=== PATIENT | female | born 1990 | race Caucasian/White ===

== ENCOUNTER 2017-05-12 22:20 | Emergency (ER) | payer OTHER ==
[2017-05-12 22:25] VITALS: BP 111/72
--- NOTE | 2017-05-12 22:45 | ED Physician Documentation ---
PD HPI BACK INJURY - Stated complaint Stated Complaint: GLF/BACK PX 8WK OB - History obtained from History obtained from: Patient, Family - History of Present Illness Location: Other (G1 at 8 weeks gestation who tripped over her dog's leash tonight and landed on her back. She really has no significant pain but is more anxious about the status of her .) Review of Systems Constitutional: denies: Fever, Chills GI: reports: Nausea, Vomiting. denies: Abdominal Pain, Diarrhea : denies: Dysuria, Frequency Musculoskeletal: denies: Neck pain, Back pain PD PAST MEDICAL HISTORY - Past Medical History Past Medical History: No - Past Surgical History Past Surgical History: No - Present Medications Home Medications: Ambulatory Orders Medication Instructions Recorded Confirmed Pnv95/Ferrous Fumarate/FA 1 tab PO DAILY 05/12/17 05/12/17 [ Vitamin Tablet] - Allergies Allergies/Adverse Reactions: Allergies Allergy/AdvReac Type Severity Reaction Status Date / Time diphenhydramine HCl * Allergy Anxiety Verified 05/12/17 22:26 [From Benadryl] - Social History Does the pt smoke?: No Smoking Status: Never smoker Does the pt drink ETOH?: No Does the pt have substance abuse?: No - Immunizations Immunizations are current?: Yes PD ED PE NORMAL - Vitals Vital signs reviewed: Yes - General General: Alert and oriented X 3, No acute distress - Neck Neck: Supple, no meningeal sign, No bony TTP - Abdomen Abdomen: Soft, Non tender - Female Female : Other (Bedside ultrasound demonstrates single live intrauterine with heart rate of 170) - Back Back: No spinal TTP - Extremities Extremities: No tenderness to palpate - Neuro Neuro: Alert and oriented X 3, Normal speech Results - Vitals Vitals: Vital Signs - 24 hr 05/12/17 22:23 Temperature 35.9 C L Heart Rate 69 Respiratory 16 Rate Blood Pressure 111/72 O2 Saturation 100 Oxygen O2 Source Room air Departure - Departure Disposition: 01 Home, Self Care Clinical Impression: Fall from ground level, First trimester Condition: Good Record reviewed to determine appropriate education?: Yes Comments: Return for new or worsening symptoms, otherwise follow-up with your OB as scheduled.
== END 2017-05-12 22:52 | disposition home or self-care (01) ==
LOC: ED 22:20
DX: O26.891 Other specified pregnancy related conditions, first trimester (principal); M54.9 Dorsalgia, unspecified; W01.0XXA Fall on same level from slipping, tripping and stumbling without subsequent striking against object, initial encounter; Y93.K1 Activity, walking an animal; Z3A.08 8 weeks gestation of pregnancy
CPT/HCPCS: 99282; 99283

== ENCOUNTER 2017-10-04 10:09 | Outpatient (CLI) | payer OTHER | END 2017-10-04 10:10 | disposition home or self-care (01) | LOC: LAB 10:09 | PROVIDERS: ATTEND Nurse Practitioner Obstetrics & Gynecology | DX: Z36.9 Encounter for antenatal screening, unspecified (principal) | CPT/HCPCS: 36415; 82950; 85018; 86850 ==

== ENCOUNTER 2017-10-11 14:25 | Outpatient (CLI) | payer OTHER ==
--- NOTE | 2017-10-13 15:54 | Ultrasound Report ---
DATE OF SERVICE: 10/11/2017 OB FOLLOWUP: 10/11/2017 CLINICAL INDICATION: Followup bilateral choroid plexus cysts. Report of outside OB office visit is included, with a mention of bilateral choroid plexus cysts on an outside anatomy scan dated 08/04/2017. TECHNIQUE: Real-time scanning was performed with nutrition representative static images obtained. LAST MENSTRUAL PERIOD 03/13/2017 Clinical Age 30 weeks 2 days US Age 31 weeks 2 days EFW Hadlock 1597 g EFW% Hadlock --- Heart Rate 146 bpm EDC --- US EDC 12/11/2017 BPD [place] 33 weeks 1 day; Mean mm 82.3 HC [place] 32 weeks 0 days; Mean mm 291.0 AC [place] 30 weeks 4 days; Mean mm 264.3 FL [place] 29 weeks 4 days; Mean mm 56.1 Presentation cephalic Placental Location anterior Cervical Length --- Amniotic Fluid 17.9 cm FINDINGS: There is a single viable intrauterine gestation, in cephalic presentation. heart rate is 146 BPM. The placenta is anterior without evidence of previa. Amniotic fluid volume is normal, with an ISIDRO of 17.9. By size, the fetus measures 31 weeks 2 days (30 weeks 2 days per due date provided by the patient). No choroid plexus cysts are identified on today's examination. No free fluid or adnexal lesion is seen. IMPRESSION: Resolution of previously identified choroid plexus cysts. Expected growth. TD: 10/12/2017 12:53 MTDD
== END 2017-10-11 14:26 | disposition home or self-care (01) ==
LOC: DI 14:25
PROVIDERS: ATTEND Nurse Practitioner Obstetrics & Gynecology
DX: Z36.2 Encounter for other antenatal screening follow-up (principal)
CPT/HCPCS: 76816

== ENCOUNTER 2017-10-27 11:18 | Outpatient (CLI) | payer OTHER | END 2017-10-27 11:19 | disposition home or self-care (01) | LOC: LAB.R 11:18 | PROVIDERS: ATTEND Nurse Practitioner Obstetrics & Gynecology | DX: R82.90 Unspecified abnormal findings in urine (principal) | CPT/HCPCS: 87086 ==

== ENCOUNTER 2017-11-30 10:09 | Outpatient (CLI) | payer OTHER | END 2017-11-30 10:10 | disposition home or self-care (01) | LOC: LAB.R 10:09 | PROVIDERS: ATTEND Nurse Practitioner Obstetrics & Gynecology | DX: Z36.85 Encounter for antenatal screening for Streptococcus B (principal) | CPT/HCPCS: 87081 ==

== ENCOUNTER 2017-12-26 15:24 | Inpatient (IN) | payer OTHER ==
[2017-12-26] MEDS ORDERED: SODIUM CHLORIDE FLUSH 0.9% 10 ML SYRINGE IVP PRN (15:56)
[2017-12-26] MEDS ORDERED: LACTATED RINGERS 1,000 ML IV SCH (16:00)
--- NOTE | 2017-12-26 16:10 | HISTORY & PHYSICAL EXAMINATION ---
Admit History - Instructions Mcgrath/Slash: -Left hand click circles element as positive or present. -Right hand click slashes element as negative or not present. - Visit Reason Visit Reason: Contractions - : 1 Parity: 0 Premature: 0 Ectopic: 0 : 0 Care: positive: [facility] Risk/History: positive: None Complications This : positive: None Smoking Status: Never smoker - Mother's Labs Mother's Blood Type: positive: O Mother's RH: positive: Negative GBS: positive: Group B Step Negative Rubella Status: positive: Immune - Other Maternal History Other Maternal History: HPI: This 27yo @ 41.1wks gestation by L=10.4wk U/S presents for contractions. Reports contractions began at 1100 and at 1400 they really started to greens picker and were one on top of another. Upon evaluation she was noted to be 4-5cm/100/-2. Membranes intact. She was admitted to L&D for management. She reports +FM and denies leakage of fluid. Dating criteria: 1.) LMP 03/10/2017 2.) First ultrasound @ 10.4wks agrees 3.) First exam 09/28/17 @ 28wks - agrees 4.) Serial exams @ 30-40wks - agrees OB History: G1: current [employer] History: Menarche age 10, regular cycle Menses 27-28 days STD's non [employer] surgeries-none Abnormal paps and treatment: no hx abnormal. last pap 11/2016 WNL PMH: none Surgical hx none: Family Hx: Asthma-sister; depression - mother; HTN- mother Social Hx: never smoker - works at a [employer] Meds: PNV Allergies -benadryl Physical Exam: Heart RRR w/o M/G/R Lungs CTAB Abdomen gravid, soft, nontender Cervix: 4-5/100/-2, vertex. Membranes intact Early labs: Blood type: O neg, antibody neg Hgb 13.8, Hct 39.6, PLT 200 Rubella immune HIV non-reactive GC/CT neg Hep B neg; Hep A neg; Hep C neg RPR non-reactive, treponema non-reactive 28 week labs: Hgb 12.1 Antibody neg 1 hour GTT 101 Tdap 09/28/17 Influenza 07/16/17 Rhogam: 10/04/2017 Ultrasounds: FAS WNL except bilateral choroid plexus cyst (4mm), placenta anterior, no previa , ISIDRO WNL, 3VC 06/18/2018 f/u: Resolution of previous choroid plexus cyst. Expected growth. Assessment: 27yo @ 41.1 wks gestation by L=10.4wk U/S Active labor Desires natural labor Plan: Intermittent monitoring/ intermittent auscultation Activity and nutrition as indicated Encouraged position changes Anticipate spontaneous vaginal delivery Meds/Allgy - Home Medications Home Medications: Ambulatory Orders Medication Instructions Recorded Confirmed Pnv95/Ferrous Fumarate/FA 1 tab PO DAILY 05/12/17 05/12/17 [ Vitamin Tablet] - Allergies Allergies/Adverse Reactions: Allergies Allergy/AdvReac Type Severity Reaction Status Date / Time diphenhydramine HCl * Allergy Anxiety Verified 05/12/17 22:26 [From Benrameshl]
[2017-12-26] MEDS ORDERED: SODIUM CHLORIDE FLUSH 0.9% 10 ML SYRINGE IVP SCH (17:00)
[2017-12-26] MEDS ORDERED: OXYTOCIN 10 UNIT/ML VIAL ONE ×2 (17:43→17:47)
[2017-12-26] MEDS ORDERED: LIDOCAINE 1% 50 ML MDV ONE (17:46)
[2017-12-26] MEDS ORDERED: miSOPROStol 200 MCG TABLET ONE (17:47)
[2017-12-26] MEDS ORDERED: MINERAL OIL LIGHT 10 ML MC ONE (17:47)
[2017-12-26] MEDS ORDERED: OXYTOCIN/SODIUM CHLORIDE 500 ML IV ONE (17:47)
[2017-12-26 18:38] LABS: BASOPHILS # (AUTO) 0.1 10^3/uL (0.0-0.1); BASOPHILS % (AUTO) 0.3 %; HGB - HEMOGLOBIN 12.5 g/dL (12.0-16.0); LYMPHOCYTES # (AUTO) 0.9 10^3/uL (1.5-3.5); LYMPHOCYTES % (AUTO) 5.3 %; MEAN CORPUSCULAR HGB CONC 33.2 g/dL (32.0-36.0); MEAN CORPUSCULAR VOLUME 90.4 fL (81.0-99.0); MEAN PLATELET VOLUME 9.8 fL (7.9-10.8); MONOCYTES # (AUTO) 0.7 10^3/uL (0.0-1.0); MONOCYTES % (AUTO) 3.8 %; NEUTROPHILS # (AUTO) 15.7 10^3/uL (1.5-6.6); NEUTROPHILS % (AUTO) 90.6 %; PLT - PLATELET COUNT 184 10^3/uL (130-450); RED BLOOD COUNT 4.18 10^6/uL (4.20-5.40); RED CELL DISTRIBUTION WIDTH 13.8 % (12.0-15.0); WHITE BLOOD COUNT 17.3 x10^3/uL (4.8-10.8)
--- NOTE | 2017-12-26 22:03 | PROVIDER PROGRESS NOTE ---
Labor Progress Note - Uterine Monitoring Uterine Monitoring Mode: positive: External toco Contraction Frequency (min/apart): 2-3 Contraction Intensity: positive: Strong Uterine Resting Tone: positive: Soft - Monitoring Monitor Mode: positive: External ultrasound Heart Rate Baseline: 145 Heart Rate Variability: positive: Moderate (6-25 bmp) Accelerations: positive: Present, 15x15 Decelerations: positive: None Strip Review: positive: Category I - Vaginal Exam Dilation (in cm): 6-7 Effacement (%): 100 Station: -1 Cervical Position: Midposition - Labor Progress Note Labor Progress Note/Additional Text: S: Coping well with contractions. Currently using stool. and occupational therapist aide supportive at bedside. O: FHR baseline 145, moderate variability, + accels, no decels. SVE last check 6 -7/100/-3, midposition, soft. A: 27yo @ 41.1wks gestation by L=10.5wk U/S Active labor BOW intact Category I tracing P: Continue expectant management. May consider AROM for augmentation with next SVE. Anticipate spontaneous vaginal delivery.
[2017-12-27] MEDS ORDERED: HYDROCORTISONE/PRAMOXINE 10 GM PR PRN (01:47)
[2017-12-27] MEDS ORDERED: OXYTOCIN/SODIUM CHLORIDE 250 ML IV ONE (01:47)
[2017-12-27] MEDS ORDERED: WITCH HAZEL/GLYCERIN 1 EACH MED..PAD TOP PRN (01:47)
--- NOTE | 2017-12-27 01:47 | DELIVERY NOTE ---
Delivery Note - Labor Labor: positive: Spontaneous - Delivery Method Delivery Method: positive: Spontaneous vaginal delivery - Presentation Presentation: positive: Vertex, Compound, ROSY - left occiput anterior - Nuchal Cord Nuchal Cord: positive: Present, Reduced - Amniotic Fluid Description Amniotic Fluid Description: positive: Clear - Episiotomy Type Episiotomy Type: positive: None - Laceration Laceration: positive: Perineal - Suture Suture Type: positive: Vicryl Suture Size: positive: 3-0 - Delivery Outcome Delivery Outcome: positive: Livebirth - [place] : positive: Placed in direct skin contact with mother, Stimulated, [place] used sex: positive: Female - Cord Cord: positive: 3 vessels - Placenta Placenta: positive: Intact, Spontaneous - Estimated Blood Loss Estimated Blood Loss (in cc): 400 - Post Delivery Events Post Delivery Events: positive: No post delivery events - Delivery Comments (Free Text/Narrative) Delivery Comments (Free Text/Narrative): labor: This 27yo @ 41.2 wks gestation by L=10.5week U/S presented at approximately 1500 in active labor. Cervix was 4-5/100/-2 and vertex. FHR pattern demonstrated 145 baseline in a Category I pattern. Normal labor course. Patient arrived with membranes intact. She was allowed to labor in the [facility] for a period of time and it is assumed that SROM occurred at that time. : Normal SVB of an 8lb0oz viable female infant in ROSY position. Loose nuchal cord x 1 easily reduced. Right compound hand noted at right side of chin. 's were 8/9 at 1 and 5 min respectively at 0100 on 12/27/2017. The was placed on maternal abdomen, stimulated, dried, and placed skin to skin. The umbilical cord was allowed to stop pulsating at which time it was doubly clamped and cut by FOB. Cord blood was obtained. Placenta delivered spontaneously and intact at 0110. 3VC. Pitocin was administered via IV for hemostasis. EBL 400mL. Uterine fundus firm and there is no excessive bleeding. The perineum, vagina, and cervix were inspected and found to be intact with mild left perineal laceration. 1% lidocaine was used to infiltrate the affected area which was repaired with 3-0 vicryl in standard fashion under sterile conditions. Vaginal examination following repair was done. Tissues well approximated. initiated. Family bonding well. Both mother and baby were left in stable condition.
[2017-12-27] MEDS ORDERED: OXYTOCIN/SODIUM CHLORIDE 500 ML IV ONE (01:48)
[2017-12-27] MEDS ORDERED: ACETAMINOPHEN 500 MG TABLET PO SCH (02:00)
[2017-12-27] MEDS ORDERED: LACTATED RINGERS 1,000 ML IV SCH (02:00)
[2017-12-27] MEDS: IBUPROFEN 800 MG TABLET PO SCH ×4 (02:22→20:56)
[2017-12-27] MEDS: DOCUSATE SODIUM 100 MG CAPSULE PO SCH ×2 (08:42→20:57)
--- NOTE | 2017-12-28 08:36 | Discharge Plan ---
Discharge Plan Disposition: 01 Home, Self Care Condition: Good Diet: Regular Activity Restrictions: No Restrictions Shower Restrictions: No Driving Restrictions: No Weight Bearing: Full Weight Additional Instructions or Follow Up instructions: S: Bonding well with baby. without difficulty. Slept well throughout the night. Pain well controlled with ibuprofen. Bleeding decreased. O: BP104/64, T 36.6, Admitted Hgb 12.5. Heart RRR w/o M/R/G, lungs CTAB. Abdomen soft and non-tender with fundus firm at U-3. Perineum intact. Light lochia rubra. Bilateral LE's no edema. A: 27yo -->P1 PPD#1 s/p TSVD of viable female Perineum intact with repaired left labial laceration RH negative - received Rhogam P: Discharge home today. Reviewed self care and warning signs. Rx sent to [facility] in [place] for Colace 100mg PO PRN constipation #60 with 1 refill. Ibuprofen 600mg PO q6hrs PRN pain #60 with 1 refill. Planning Nexplanon for contraception - desires future children in 2-3 years. Plans to f/u with myself at [facility] in 3 weeks and 8 weeks or sooner PRN. Will hold discharge until tomorrow if baby is not discharged. No Smoking: If you smoke, Please STOP! Call for help. Follow-up with: Ana Ortega CNM, PATRICIA [Provider Admit Priv/Credential] -
[2017-12-28] MEDS: IBUPROFEN 800 MG TABLET PO SCH (08:58)
[2017-12-28] MEDS: DOCUSATE SODIUM 100 MG CAPSULE PO SCH (09:02)
[2017-12-28] MEDS ORDERED: RHO(D) IMMUNE GLOBULIN 300 MCG SYRINGE IM ONE (12:21)
[2017-12-28 16:29] VITALS: BP 99/60
--- NOTE | 2017-12-28 16:50 | Labor Flowsheet ---
Labor Flowsheet Datetime Report Generated by CPN: 12/28/2017 16:49 Datetime: 12/28/2017 13:29 VITAL SIGNS NBP Sys/Jennifer/Mean (mmHg): 99 : 60 : 70 Pulse: 88 Datetime: 12/27/2017 16:10 SpO2 (%): 100 Datetime: 12/27/2017 03:30 Membranes Ruptured Date/Time: 12/26/2017 20:30 Membranes Rupture Method: Spontaneous Amniotic Fluid Color: Clear Amniotic Fluid Amount: Small Amniotic Fluid Odor: None Datetime: 12/27/2017 03:15 Stage of : Recovery PAIN Pain Scale: 0 Pain Presence: None/Denies Pain Goal: 6 Pain Relief Measures: Comfort Measures Datetime: 12/27/2017 01:30 Temperature (C): 37.0 Temperature Route: Oral Datetime: 12/27/2017 01:12 MEDICATIONS Pitocin (milliunits): Increased to @ 999 Datetime: 12/27/2017 01:10 Comments: placenta delicvered intact, Pitocin started at 50ml/hr Datetime: 12/27/2017 01:08 LaborFlag: Labor Datetime: 12/27/2017 00:52 Respirations: 18 Datetime: 12/27/2017 00:45 UTERINE ACTIVITY Monitor Mode: External Frequency (min): 2-4 Quality: Strong Duration (sec): 70-100 Pattern: Normal: <= 5 Contractions in 10 Minutes Resting Tone (Palpate): Relaxed ASSESSMENT A Monitor Mode: External US FHR Baseline Rate : 150 Variability: Moderate 6-25 bpm Accelerations: 10X10 Decelerations: Variable Actions for Decelerations: Oxygen Applied; Provider Notified Datetime: 12/27/2017 00:39 PATIENT CARE Oxygen Amount (LPM): 10 Datetime: 12/27/2017 00:15 Category: Category II Datetime: 12/27/2017 00:10 VAGINAL EXAM Dilatation (cm): 10.0 Effacement (%): 100 Station: 1 Exam by: A. Oneil, CNM Datetime: 12/27/2017 00:08 Contraction Comments: pushing with contractions Datetime: 12/26/2017 23:00 Monitor Interventions for FHR: Ultrasound Adjusted Pain Type: Contraction Pain Location: Abdomen; Back Pain Coping: Breathing Through Contractions; Declines Medication or Epidural; Crying; Other Oxygen Method: Room Air Datetime: 12/26/2017 22:30 Hygiene: Annette Care; Underpad Changed Datetime: 12/26/2017 22:21 Vaginal Exam Comments: A Oneil, CNM unable to rupture membranes at this time Datetime: 12/26/2017 22:13 Communication Comments: pt back to bed, monitors on; A Oneil, CNM at bedside Datetime: 12/26/2017 21:32 Monitor Interventions for UA: [place] Adjusted Datetime: 12/26/2017 19:55 COMMUNICATION Communication: RN at Bedside; RN Reviewed Strip Datetime: 12/26/2017 19:45 Temperature (F): 98.3 Temperature (C): 36.8 Pain Assessment Comments: Superintendent Meters and at tubside Membrane Status: Intact MATERNAL ASSESSMENT Level of Consciousness: Fully Conscious DTR's/Clonus: DTRs 2+ Headache: Denies Breath Sounds, Left: Clear and Equal Breath Sounds, Right: Clear and Equal Nausea/Vomiting: Denies RUQ Epigastric Pain: Denies TEACHING Instructional Method: Verbal; Family/Support Person Instructed; Verbalized Understanding Plan of Care: Plan of Care Discussed; Vaginal Delivery Unit Routine: [place] to Room; Call [place]; Bed; Visiting Policy; Waiting Areas; Security; Phon e/Cell Phone Use; Unit Personnel; Handwashing; Flu/Illness Precautions Labor/Induction: Labor Stages Pain Management: Comfort Measures Medications: Pitocin PTL/PROM: Hydration; Signs/Symptoms of Infection Related: Hydration; Activity and Rest Datetime: 12/26/2017 19:10 R Baseline Changes: No Baseline Change Datetime: 12/26/2017 16:15 Vaginal Bleeding: Normal Show Cervix, Consistency: Soft Cervix, Position: Anterior Provider Reviewed Strip: Yes ANESTHESIA Anesthesia Plans: None Notification Reason: Status Update
--- NOTE | 2018-01-05 18:03 | DISCHARGE SUMMARY ---
Physician: PATRICIA Rivas DATE OF ADMISSION: 12/26/2017 DATE OF DISCHARGE: 12/28/2017 DIAGNOSES ON ADMISSION 1. A 27-year-old G1, P0 at 41.1 weeks gestation. 2. Active labor. DIAGNOSES ON DISCHARGE 1. A 27-year-old G1, P1-0-0-1, status post spontaneous vaginal delivery on 12/27/2017. 2. Normal recovery status post RhoGAM on 12/28/2017 BRIEF HISTORY: She is a patient of [facility] who presented on 12/26/2017 with complaints of contractions. She was noted to be 4-5 cm dilated, 100% effaced and -2 station, vertex with intact membranes. She spontaneously delivered a viable female at 0100 on 12/27/2017. Apgars were 8 and 9 at 1 and 5 minutes respectively. EBL 400 mL. The perineum, vagina and cervix were inspected and found to be intact with mild left perineal laceration, which was repaired with a 3-0 Vicryl in standard fashion under sterile conditions. She has been doing well in her course. She was ambulating and tolerating a regular diet. She is urinating without difficulty. Her lochia was normal. Her pain is well controlled with oral medications. She received RhoGAM on 12/28/2017. She will be discharged home today on day #2 with prescriptions for ibuprofen and Colace. She intends to followup with myself at [facility] in 3 weeks for routine visit. She has been given precautions to call if she has any worsening fevers, chills, abdominal pain, increased bleeding or foul smelling vaginal lochia. TD: 01/05/2018 18:01
== END 2017-12-28 13:45 | disposition home or self-care (01) | DRG 775 ==
LOC: WFO 15:24 → FBP 15:47 → WFO 15:55 → FBP 15:56
PROVIDERS: ADMIT Nurse Practitioner Obstetrics & Gynecology; ATTEND Nurse Practitioner Obstetrics & Gynecology
PROC: 10E0XZZ Delivery of Products of Conception, External Approach (ICD-10-PCS; principal; 2017-12-26)
PROC: 0HQ9XZZ Repair Perineum Skin, External Approach (ICD-10-PCS; 2017-12-26)
DX: O48.0 Post-term pregnancy (principal); O70.0 First degree perineal laceration during delivery; O32.6XX0 Maternal care for compound presentation, not applicable or unspecified; O69.81X0 Labor and delivery complicated by cord around neck, without compression, not applicable or unspecified; Z3A.41 41 weeks gestation of pregnancy; Z37.0 Single live birth
CPT/HCPCS: 83033; 85025; 86900; 86901; 99212

== ENCOUNTER 2019-04-20 08:47 | Outpatient (CLI) | payer OTHER ==
--- NOTE | 2019-04-20 17:31 | Ultrasound Report ---
Reason: TEST POSITIVE Procedure Date: 04/20/2019 Accession Number: [id number] / [id number] Procedure: US - OB First Trimester CPT Code: FULL RESULT: EXAM: FIRST TRIMESTER OBSTETRIC ULTRASOUND (Less than 11 weeks) EXAM DATE: 04/20/2019 10:30 AM. CLINICAL HISTORY: TEST POSITIVE. LMP: 02/23/2019. COMPARISONS: None. TECHNIQUE: Transabdominal and transvaginal ultrasound examination with static image documentation. CLINICAL DATES: EGA 8 weeks 0 days with EVY 11/30/2019 based on LMP. ASSESSMENT: Gestational Sac: Single intrauterine. Embryo: CRL (crown-rump length) 13.6 mm = 7 weeks 4 days. Cardiac activity: 174 beats per minute. Yolk sac: 5 mm. Amniotic fluid: Not accurately assessed at this gestational age. Early placenta: Not visible at this gestational age. Other: No perigestational fluid collection demonstrated. MATERNAL STRUCTURES: Uterus: Anteverted. Unremarkable. Cervix: Closed. Bilateral ovaries appear unremarkable. Free Fluid: None. Other: None. IMPRESSION: 1. Single viable intrauterine at EGA 7 weeks 4 days with EVY based on crown-rump length, which is concordant with clinical dates. 2. Assigned dating is EVY 11/30/2019 based on LMP. MICHELLEA
== END 2019-04-20 08:48 | disposition home or self-care (01) ==
LOC: DI 08:47
PROVIDERS: ATTEND Nurse Practitioner Obstetrics & Gynecology
DX: Z32.01 Encounter for pregnancy test, result positive (principal)
CPT/HCPCS: 76801; 76817

== ENCOUNTER 2019-05-12 08:00 | Outpatient (CLI) | payer OTHER ==
[2019-05-12 14:30] LABS: MUDS CUTOFF CONCENTRATIONS CUTOFF CONC BELOW:
[2019-05-12 14:36] LABS: BILIRUBIN,URINE NEGATIVE (NEGATIVE); GLUCOSE, URINE (UA) NEGATIVE (NEGATIVE); KETONES,URINE (UA) NEGATIVE (NEGATIVE); LEUKOCYTE ESTERASE, URINE NEGATIVE (NEGATIVE); NITRITE,URINE NEGATIVE (NEGATIVE); OCCULT BLOOD,URINE NEGATIVE (NEGATIVE); PROTEIN,URINE NEGATIVE (NEGATIVE); UROBILINOGEN,URINE 0.2 (NORMAL) E.U./dL (NORMAL)
[2019-05-12 14:38] LABS: CLARITY,URINE CLEAR (CLEAR)
[2019-05-12 14:48] LABS: BACTERIA,URINE Rare /HPF (None Seen); RBC,URINE 0-5 /HPF (0-5); SQUAMOUS EPITHELIAL CELL,UR FEW Squamous (<= Few)
[2019-05-12 14:49] LABS: AMPHETAMINE SCREEN,URINE NEGATIVE (NEGATIVE); BENZODIAZEPINES SCREEN, URINE NEGATIVE (NEGATIVE); COCAINE SCREEN URINE NEGATIVE (NEGATIVE); METHADONE SCREEN, URINE NEGATIVE (NEGATIVE); METHAMPHETAMINES SCREEN, URINE NEGATIVE (NEGATIVE); OPIATE SCREEN, URINE NEGATIVE (NEGATIVE); OXYCODONE SCREEN, URINE NEGATIVE (NEGATIVE); PROPOXYPHENE SCREEN, URINE NEGATIVE (NEGATIVE); TRICYCLIC ANTIDEPRESSANT,URINE NEGATIVE (NEGATIVE)
[2019-05-12 19:04] LABS: TRICHOMONAS VAGINALIS DNA NEGATIVE (NEGATIVE)
== END 2019-05-12 08:01 | disposition home or self-care (01) ==
LOC: LAB.R 08:00
PROVIDERS: ATTEND Nurse Practitioner Obstetrics & Gynecology
DX: Z36.89 Encounter for other specified antenatal screening (principal); Z11.3 Encounter for screening for infections with a predominantly sexual mode of transmission
CPT/HCPCS: 80306; 81001; 87086; 87491; 87591; 87661

== ENCOUNTER 2019-05-19 08:00 | Outpatient (CLI) | payer OTHER ==
[2019-05-19 12:21] LABS: BASOPHILS % (AUTO) 0.2 %; EOSINOPHILS % (AUTO) 0.6 %; HGB - HEMOGLOBIN 11.9 g/dL (12.0-16.0); LYMPHOCYTES # (AUTO) 1.2 10^3/uL (1.5-3.5); LYMPHOCYTES % (AUTO) 23.8 %; MEAN CORPUSCULAR HEMOGLOBIN 30.2 pg (27.0-31.0); MEAN CORPUSCULAR HGB CONC 33.1 g/dL (32.0-36.0); MEAN CORPUSCULAR VOLUME 91.4 fL (81.0-99.0); MEAN PLATELET VOLUME 11.5 fL (7.9-10.8); MONOCYTES # (AUTO) 0.3 10^3/uL (0.0-1.0); MONOCYTES % (AUTO) 5.1 %; NEUTROPHILS # (AUTO) 3.5 10^3/uL (1.5-6.6); NEUTROPHILS % (AUTO) 70.1 %; PLT - PLATELET COUNT 176 10^3/uL (130-450); RED BLOOD COUNT 3.94 10^6/uL (4.20-5.40); RED CELL DISTRIBUTION WIDTH 12.5 % (12.0-15.0)
[2019-05-22 10:30] LABS: HIV AG/AB 4TH GEN NON-REACTIVE (NON-REACTIVE)
[2019-05-22 13:17] LABS: HEPATITIS B SURFACE ANTIGEN NON-REACTIVE (NON-REACTIVE)
[2019-05-22 13:18] LABS: HEPATITIS C ANTIBODY NON-REACTIVE (NON-REACTIVE)
== END 2019-05-19 23:59 | disposition home or self-care (01) ==
LOC: LAB.N 08:00
PROVIDERS: ATTEND Nurse Practitioner Obstetrics & Gynecology
DX: Z36.89 Encounter for other specified antenatal screening (principal)
CPT/HCPCS: 36415; 81599; 85025; 86592; 86762; 86803; 86850; 86900; 86901; 87340; 87389

== ENCOUNTER 2019-06-20 09:31 | Outpatient (CLI) | payer OTHER | END 2019-06-20 23:59 | disposition home or self-care (01) | LOC: LAB.WCP 09:31 | PROVIDERS: ATTEND Obstetrics & Gynecology | DX: Z34.80 Encounter for supervision of other normal pregnancy, unspecified trimester (principal) | CPT/HCPCS: 36415; 81220; 81243; 81329; 81511; 81599 ==

== ENCOUNTER 2019-07-10 08:20 | Outpatient (CLI) | payer OTHER ==
--- NOTE | 2019-07-10 16:00 | Ultrasound Report ---
Reason: ENCOUNTER FOR SCREENING Procedure Date: 07/10/2019 Accession Number: [id number] / [id number] Procedure: US - OB Detailed Eval CPT Code: FULL RESULT: EXAM: COMPLETE OBSTETRICAL ULTRASOUND EXAM DATE: 07/10/2019 10:43 AM. CLINICAL HISTORY: anatomic survey. COMPARISON: OB FIRST TRIMESTER 04/20/2019 9:50 AM. TECHNIQUE: Real-time sonographic evaluation of the fetus performed by the alterations manager. Multiple inbound sales representative static images were saved for review. DATING: Established EGA 19 weeks 4 days with EVY 11/30/2019 based on working due date/LMP. EGA 19 weeks 1 day with EYV 12/03/2019 based on first ultrasound. EGA 19 weeks 0 days with EVY 12/04/2019 based on the current ultrasound. GENERAL EVALUATION Sparks . Cardiac activity: 156 bpm. movement: Visualized. Presentation: Breech Placenta: Anterior position. No evidence for previa. Umbilical cord: 3 vessel cord. Central placental cord origin. Amniotic fluid: Subjectively normal. MVP 5.3 cm and ISIDRO 14.9 cm. BIOMETRY Bi-Parietal Diameter (BPD): 4.5 cm, 19 weeks 4 days Head Circumference (HC): 16.7 cm, 19 weeks 3 days Abdominal Circumference (AC): 14.2 cm, 90 weeks 4 days Femur Length (FL): 2.7 cm, 18 weeks 3 days Estimated Weight: 275 grams, 22nd percentile for 90 weeks 4 days. ANATOMY The intracranial structures, profile, spine, cardiac outflow tracts, stomach, abdominal wall and cord insertion, diaphragm, kidneys, bladder, and extremities were visualized and demonstrate no abnormality. The visualization of the face/nose/lips, and four-chamber cardiac view were suboptimal. MATERNAL STRUCTURES Uterus: Unremarkable. Cervix: Long and closed. Transabdominal length 3.8 cm. Right ovary/adnexa: Unremarkable. Left ovary/adnexa: Unremarkable. Free fluid: None. IMPRESSION: 1. Sparks live intrauterine with gestational age 19 weeks 4 days based on LMP. 2. Estimated weight is within expected limits for assigned dating. 3. Incomplete anatomic survey, the profile/nasal bone visualization and four-chamber cardiac view were suboptimal. No anatomic abnormalities are detected at this time. RADIA
== END 2019-07-10 08:21 | disposition home or self-care (01) ==
LOC: DI 08:20
PROVIDERS: ATTEND Obstetrics & Gynecology
DX: Z36.89 Encounter for other specified antenatal screening (principal)
CPT/HCPCS: 76811

== ENCOUNTER 2019-07-25 09:12 | Outpatient (CLI) | payer OTHER ==
--- NOTE | 2019-07-25 12:50 | Ultrasound Report ---
Reason: SCREENING, COMPLETION OF FAS Procedure Date: 07/25/2019 Accession Number: [id number] / [id number] Procedure: US - OB F/U or Repeat CPT Code: FULL RESULT: EXAM: FOLLOW-UP OBSTETRICAL ULTRASOUND EXAM DATE: 07/25/2019 11:15 AM. CLINICAL HISTORY: SCREENING, COMPLETION OF FAS. COMPARISON: OB F/U OR REPEAT 10/11/2017 3:48 PM. TECHNIQUE: Real-time sonographic evaluation of the fetus performed by the concrete rod buster. Multiple inside sales account representative static images were saved for review. DATING: Established EGA 21 weeks 5 days with EVY 11/30/2019 based on LMP. GENERAL EVALUATION [place] . Cardiac activity: 149 bpm. movement: Present Presentation: Variable Placenta: Anterior position. Amniotic fluid: Normal. ISIDRO 18.2 cm. MVP 6.1 cm. BIOMETRY Not performed today ANATOMY profile and four-chamber cardiac view well seen today and no anomalies are appreciated. Incidental note 7 mm right choroid plexus cyst. MATERNAL STRUCTURES Cervix 3.8 cm. IMPRESSION: 1. Sparks intrauterine with gestational age 21 weeks 5 days based on LMP. 2. profile and four-chamber heart appear normal. 3. Incidental note 7 mm right choroid plexus cyst. RADIA
== END 2019-07-25 09:13 | disposition home or self-care (01) ==
LOC: DI 09:12
PROVIDERS: ATTEND Nurse Practitioner Obstetrics & Gynecology
DX: Z36.89 Encounter for other specified antenatal screening (principal)
CPT/HCPCS: 76816

== ENCOUNTER 2019-09-07 08:56 | Outpatient (CLI) | payer OTHER ==
[2019-09-07 10:17] LABS: HGB - HEMOGLOBIN 11.5 g/dL (12.0-16.0); MEAN CORPUSCULAR HEMOGLOBIN 30.7 pg (27.0-31.0); MEAN CORPUSCULAR HGB CONC 33.3 g/dL (32.0-36.0); MEAN CORPUSCULAR VOLUME 92.2 fL (81.0-99.0); MEAN PLATELET VOLUME 10.3 fL (7.9-10.8); RED BLOOD COUNT 3.74 10^6/uL (4.20-5.40); RED CELL DISTRIBUTION WIDTH 13.1 % (12.0-15.0); WHITE BLOOD COUNT 6.4 x10^3/uL (4.8-10.8)
== END 2019-09-07 08:57 | disposition home or self-care (01) ==
LOC: LAB 08:56
PROVIDERS: ATTEND Nurse Practitioner Obstetrics & Gynecology
DX: Z36.89 Encounter for other specified antenatal screening (principal)
CPT/HCPCS: 36415; 82950; 85027; 86850

== ENCOUNTER 2019-10-23 08:19 | Outpatient (CLI) | payer OTHER ==
[2019-10-23 08:44] VITALS: BP 126/82
--- NOTE | 2019-10-25 17:29 | PROVIDER PROGRESS NOTE ---
- HPI Chief Complaint: Decreased movement Current : Current EDU 11/30/19 Gestation 34 Weeks and 4 Days 2 Para 1 Vital Signs Temperature 98.2 F 10/23/19 08:37 Heart Rate 83 10/23/19 08:37 Respiratory Rate 18 10/23/19 08:37 Blood Pressure 126/82 H 10/23/19 08:37 O2 Saturation 100 10/23/19 08:37 Temperature 98.2 F 10/23/19 08:37 Heart Rate 83 10/23/19 08:37 Respiratory Rate 18 10/23/19 08:37 Blood Pressure 126/82 H 10/23/19 08:37 O2 Saturation 100 10/23/19 08:37 - Procedures OB Procedure Performed: NST Diagnosis/Indication for NST: Decreased movement NST Procedure: NST Procedure Start Date 10/23/19 Start Time 08:35 Stop Time 09:39 Vibroacoustic Stimulation Used Yes Patient States Movement Yes: decreased Extended monitoring showes baseline 135 mod dewayne 15x15 accels no decels TOCO: intermittent Service Date of procedure: 10/23/19 Procedure Details: Patient is a 28 yo at 34+4 wga here with decreased movement after episode of GI symptoms Diarrhea, nausea, vomiting now resolved Reports decreased FM Initital NST non-reactive and BPP was ordered Patient was encouraged to push fluid in the interirm While waiting for US, NST showed moderate variability with 15x15 accels and no d ecels BPP cancelled given cat I tracing Findings: Cat I tracing - Plan Plan: Discharged to home with warning signs reviewed.
== END 2019-10-23 09:55 | disposition home or self-care (01) ==
LOC: FBP 08:19 → WFO 08:19 → FBP 08:20 → WFO 09:55
PROVIDERS: ATTEND Obstetrics & Gynecology
DX: O36.8130 Decreased fetal movements, third trimester, not applicable or unspecified (principal); Z3A.34 34 weeks gestation of pregnancy
CPT/HCPCS: 59025; 99212

== ENCOUNTER 2019-10-29 07:45 | Outpatient (CLI) | payer OTHER ==
--- NOTE | 2019-10-29 23:24 | Ultrasound Report ---
Reason: UTERINE SIZE-DATE DISCREPANCY, THIRD TRIMESTER Procedure Date: 10/29/2019 Accession Number: [id number] / [id number] Procedure: US - OB F/U or Repeat CPT Code: Final Report FULL RESULT: EXAM: FOLLOW-UP OBSTETRICAL ULTRASOUND EXAM DATE: 10/29/2019 07:55 AM. CLINICAL HISTORY: UTERINE SIZE-DATE DISCREPANCY, THIRD TRIMESTER. COMPARISON: OB F/U OR REPEAT 07/25/2019 9:52 AM. TECHNIQUE: Real-time sonographic evaluation of the fetus performed by the zipper repairer. Multiple territory service representative static images were saved for review. DATING: Established EGA 35 weeks 3 days with EVY 11/30/2019 based on LMP. EGA 35 weeks 0 days with EVY 12/03/2019 based on initial sonogram. EGA 34 weeks 4 days with EVY 12/06/2019 based on the current ultrasound. GENERAL EVALUATION [place] . Cardiac activity: 138 bpm. movement: Visualized. Presentation: Cephalic. Placenta: Anterior position. Amniotic fluid: Normal. ISIDRO 13.3 cm. MVP 4.0 cm. BIOMETRY Bi-Parietal Diameter (BPD): 9.0 cm, 36 weeks 2 days Head Circumference (HC): 30.8 cm, 34 weeks 3 days Abdominal Circumference (AC): 31.2 cm, 35 weeks 1 day Femur Length (FL): 6.2 cm, 31 weeks 6 days Estimated Weight: 2404 g, 20th percentile for 35 weeks 3 days. MATERNAL STRUCTURES The cervix measures 3.3 cm, and is closed. IMPRESSION: 1. Sparks live intrauterine with gestational age 35 weeks 3 days based on LMP. 2. Estimated weight is within expected limits for assigned dating. 3. Femur lags 4 weeks behind the other measurements. RADIA
== END 2019-10-29 07:46 | disposition home or self-care (01) ==
LOC: DI 07:45
PROVIDERS: ATTEND Nurse Practitioner Obstetrics & Gynecology
DX: O26.843 Uterine size-date discrepancy, third trimester (principal); Z3A.35 35 weeks gestation of pregnancy
CPT/HCPCS: 76816

== ENCOUNTER 2019-10-31 08:00 | Outpatient (CLI) | payer OTHER ==
[2019-10-31 18:29] LABS: TRICHOMONAS VAGINALIS DNA NEGATIVE (NEGATIVE)
== END 2019-10-31 23:59 | disposition home or self-care (01) ==
LOC: LAB.R 08:00
PROVIDERS: ATTEND Nurse Practitioner Obstetrics & Gynecology
DX: Z36.85 Encounter for antenatal screening for Streptococcus B (principal); Z11.3 Encounter for screening for infections with a predominantly sexual mode of transmission
CPT/HCPCS: 87491; 87591; 87661; 87797

== ENCOUNTER 2019-11-21 19:22 | Inpatient (IN) | payer OTHER ==
[2019-11-21] MEDS ORDERED: SODIUM CHLORIDE FLUSH 0.9% 10 ML SYRINGE IVP PRN (19:54)
[2019-11-21] MEDS ORDERED: LACTATED RINGERS 1,000 ML IV SCH (20:00)
[2019-11-21 20:42] LABS: BASOPHILS % (AUTO) 0.4 %; EOSINOPHILS % (AUTO) 0.5 %; HGB - HEMOGLOBIN 11.5 g/dL (12.0-16.0); LYMPHOCYTES # (AUTO) 1.4 10^3/uL (1.5-3.5); LYMPHOCYTES % (AUTO) 18.8 %; MEAN CORPUSCULAR HEMOGLOBIN 30.8 pg (27.0-31.0); MEAN CORPUSCULAR HGB CONC 34.5 g/dL (32.0-36.0); MEAN CORPUSCULAR VOLUME 89.3 fL (81.0-99.0); MEAN PLATELET VOLUME 11.4 fL (7.9-10.8); MONOCYTES # (AUTO) 0.5 10^3/uL (0.0-1.0); MONOCYTES % (AUTO) 6.5 %; NEUTROPHILS # (AUTO) 5.4 10^3/uL (1.5-6.6); NEUTROPHILS % (AUTO) 73.3 %; PLT - PLATELET COUNT 186 10^3/uL (130-450); RED BLOOD COUNT 3.73 10^6/uL (4.20-5.40); WHITE BLOOD COUNT 7.4 x10^3/uL (4.8-10.8)
--- NOTE | 2019-11-21 20:53 | HISTORY & PHYSICAL EXAMINATION ---
Admit History - Visit Reason Visit Reason: Membranes rupture - : 2 Parity: 1 Premature: 0 Ectopic: 0 : 0 Care: positive: [facility] Risk/History: positive: None Complications This : positive: None Smoking Status: Never smoker - Mother's Labs Mother's Blood Type: positive: O Mother's RH: positive: Negative GBS: positive: Group B Step Negative Rubella Status: positive: Immune Meds/Allgy - Home Medications Home Medications: Ambulatory Orders Medication Instructions Recorded Confirmed Pnv No.95/Ferrous Fum/Folic AC 1 tab PO DAILY 05/12/17 05/12/17 [ Vitamin Tablet] - Allergies Allergies/Adverse Reactions: Allergies Allergy/AdvReac Type Severity Reaction Status Date / Time diphenhydramine HCl * Allergy Anxiety Verified 05/12/17 22:26 [From Benadryl] Review of Systems - Constitutional Constitutional: denies: Fatigue, Fever, Chills, Malaise - Eyes Eyes: denies: Blurred vision, Spots in vision, Dipolpia - Cardiovascular Cariovascular: denies: Irregular heart rate, Palpitations, Chest pain, Edema - Respiratory Respiratory: denies: SOB at rest - Gastrointestinal Gastrointestinal: denies: Constipation, Diarrhea, Change in bowel habits - Integumentary Integumentary: denies: Rash, Pruritis - Neurological Neurological: denies: Headache Physical - Abdominal Exam Vital Signs: Temp Pulse Resp BP Pulse Ox 36.8 C 81 18 127/84 H 100 11/21/19 19:33 11/21/19 19:33 11/21/19 19:33 11/21/19 19:33 11/21/19 19:33 Contraction Frequency (min/apart): 10 Contraction Intensity: positive: Mild to moderate Uterine Resting Tone: positive: Soft - Monitoring Heart Rate Baseline: 135 Strip Review: positive: Category I - Presentation Presentation: positive: Vertex - Vaginal Exam Membranes: positive: Membranes ruptured Dilation (in cm): 3-4 Effacement (%): 50 Station: positive: -1 Cervical Position: positive: Anterior - Speculum Exam Speculum Exam Performed: positive: No Findings: positive: Gross leak Plan for Labor - Plan For Labor I expect patient to be DC'd or transferred within 96 hours.: Yes Plan for Labor: HPI: This 29yo @ 38.5wks gestation by 7.4wk U/S c/w LMP dating. She presents to [facility] with complaints of grossly ruptured membranes which occurred at approximately 1900 and was noted to be a moderate amount of clear fluid. She initially denied feeling contractions but over the past 2 hours she states she has started to notice occasional contractions. She denies vaginal bleeding and reports +FM. SVE 3-50/-1, anterior, vertex with grossly ruptured membranes. She has been a patient of [facility] through the duration of her which has remained uncomplicated. She was admitted to [facility] for expectant management. Dating criteria: LMP 02/23/2019 Initial U/S: @ 7.4wks c/w LMP dating Serial exams - agree OBHx: G1: 12/27/2017 @ 41.2wks. . unmedicated. [facility] delivered by Ana Ortega CNM. Female G2: Current Medications: PNV Allergies: Benadryl PMHx: No significant Surgical Hx: none Social Hx: Never smoker, no ETOH or IVDA. active duty - currently deployed. Family hx: HTN - mother; Stroke/CVA - PGF; MS - Mother labs: O neg/Rubella immune Quad screen neg; CF neg, SMA neg Glucola 113 09/07/19- antibody negative GBS & GC/CT NEG x 3 Ultrasounds: Initial U/S: @ 7.4wks c/w LMP dating FAS WNL with the exception of incomplete visualization of profile/nasal bone and four-chamber cardiac views. Anterior placenta, no previa. 3VC. Size c/w dating. 07/25/2019 completion FAS WNL 10/29/2019 growth and ISIDRO secondary to size<dates WNL. EFW 20th percentile. ISIDRO WNL. Immunizations: Influenza administered 07/12/2019 TDAP 09/08/2019 Rhogam 09/08/2019 Physical Exam: Normocephalic, atraumatic Heart RRR w/o M/G/R Lungs CTAB Abdomen gravid, soft, nontender EFW 3000g SVE 3-4/50/-1, anterior, vertex. Grossly ruptured membranes Contractions irregular - every 10 minutes palpating mild with soft resting tone FHR baseline 130s, moderate variability, + accels, no decels Bilateral LE's no edema Mood is good. Mother in law and cafeteria supervisor supportive at the bedside Assessment: 29yo @ 38.5wks gestation by LMP c/w 7.6wk U/S Early labor GBS neg Plan: Admit to [facility] for expectant management Expectantly manage x 4 hours and if contractions have not increased in frequency and intensity, will initiate pitocin via IV for labor augmentation Intermittent monitoring Jacuzzi PRN. Nitrous oxide PRN. Anticipate
--- NOTE | 2019-11-22 03:25 | PROVIDER PROGRESS NOTE ---
Labor Progress Note - Uterine Monitoring Uterine Monitoring Mode: positive: External toco Contraction Frequency (min/apart): 6-12 Contraction Intensity: positive: Moderate Uterine Resting Tone: positive: Soft - Monitoring Monitor Mode: positive: External ultrasound Heart Rate Baseline: 130 Heart Rate Variability: positive: Moderate (6-25 bmp) Accelerations: positive: Present, 15x15 Decelerations: positive: None Strip Review: positive: Category I - Vaginal Exam Dilation (in cm): 4 Effacement (%): 80 Station: 0 Cervical Position: Anterior - Labor Progress Note Labor Progress Note/Additional Text: S: Left side lying position in bed with peanut ball. Feeling her contractions are increasing in intensity gradually. Declines augmentation at this time. Mother in law and gold leaf roller supportive at the bedside. O: SVE 4/80/0, vertex Contractions palpate moderate inconsistently - some difficulty picking up contractions via tocometry secondary to pt body habitus. Pt feels they are increasing in intensity. FHR baseline 130s, moderate variability, + accels, no decels A: 29yo @ 38.6wks gestation GBS neg Early labor SROM x 8hrs (SROM @ 1745) P: Continue expectant management Reviewed augmentation with low dose pitocin and pt declines at this time Jacuzzi PRN. Nitrous oxide PRN. Anticipate
--- NOTE | 2019-11-22 07:39 | PROVIDER PROGRESS NOTE ---
Labor Progress Note - Uterine Monitoring Uterine Monitoring Mode: positive: External toco Contraction Frequency (min/apart): intermittent Contraction Intensity: positive: Moderate Uterine Resting Tone: positive: Soft - Monitoring Monitor Mode: positive: External ultrasound Heart Rate Baseline: 140 Heart Rate Variability: positive: Moderate (6-25 bmp) Accelerations: positive: Present, 15x15 Decelerations: positive: None Strip Review: positive: Category I - Vaginal Exam Dilation (in cm): 4 Effacement (%): 80 Station: 0 Cervical Position: Anterior - Labor Progress Note Labor Progress Note/Additional Text: S: Feeling her contractions have spaced out and she was able to get a couple hours of sleep. She is now feeling open to initiating labor augmentation. Mother in law supportive at the bedside. O: FHR baseline 140s, moderate variability, + accels, no decels Contractions palpate mild to moderate intermittently SVE 4/80/0 - unchanged from last SVE AROM x 10 hours - afebrile A: 29 yo @ 38.6wks gestation Early labor GBS neg P: Initiate pitocin for labor augmentation Continuous monitoring Encouraged ambulation and position changes Jacuzzi PRN. Nitrous oxide PRN Anticipate
[2019-11-22] MEDS ORDERED: OXYTOCIN/SODIUM CHLORIDE 500 ML IV SCH (08:00)
[2019-11-22] MEDS: SODIUM CHLORIDE FLUSH 0.9% 10 ML SYRINGE IVP SCH ×2 (08:10→14:00)
[2019-11-22] MEDS ORDERED: LIDOCAINE-MPF 1% 30 ML VIAL ONE (11:32)
[2019-11-22] MEDS ORDERED: miSOPROStoL 200 MCG TABLET ONE (11:32)
[2019-11-22] MEDS ORDERED: WITCH HAZEL/GLYCERIN 1 PAD TOP PRN (11:56)
[2019-11-22] MEDS ORDERED: HYDROCORTISONE 1% CREAM 28 GM TUBE PR PRN (11:56)
--- NOTE | 2019-11-22 12:08 | DELIVERY NOTE ---
Delivery Note - Labor Labor: positive: Augmented by oxytocin - Delivery Method Delivery Method: positive: Spontaneous vaginal delivery - Presentation Presentation: positive: Vertex, FARHAN - right occiput anterior - Nuchal Cord Nuchal Cord: positive: Present, Reduced - Amniotic Fluid Description Amniotic Fluid Description: positive: Clear - Episiotomy Type Episiotomy Type: positive: None - Laceration Laceration: positive: None - Delivery Outcome Delivery Outcome: positive: Livebirth - Mazon Mazon: positive: Placed in direct skin contact with mother, Stimulated, Warmed, [place] used Mazon sex: positive: Female - Cord Cord: positive: 3 vessels - Placenta Placenta: positive: Intact, Spontaneous - Estimated Blood Loss Estimated Blood Loss (in cc): 150 - Post Delivery Events Post Delivery Events: positive: No post delivery events - Delivery Comments (Free Text/Narrative) Delivery Comments (Free Text/Narrative): Labor: This 29yo @ 38.6wks gestation by LMP presented at 1900 with c/o SROM at 1745 which was noted to be a moderate amount of clear fluid. Upon arrival cervix was 3/50/-1, vertex and there were few contractions appreciated. FHR pattern demonstrated Category I baseline. Pt augmented with pitocin via IV for a maximum infusion rate of 11mU/mL. Patient progressed to 7cm at 1132 followed closely by urge to bear down. She was noted to be c/c/+3 at 1137. : Normal of viable female on 11/22/2019 @ 1141 in FARHAN position with compound left hand. Nuchal cord x 1 easily reduced. The was stimulated, dried, and placed skin to skin. 's 9/10 at 1 and 5 min respectively. The umbilical cord was allowed to stop pulsating at which time it was doubly clamped by CNM and cut by patient. Pitocin administered via IV for hemostasis. Cord blood was obtained. 3VC. Placenta delivered spontaneously and intact at 1146. EBL 150mL. Fourth stage: Uterine fundus firm and there is no excessive bleeding. The perineum, vagina, and cervix were inspected and noted to be intact. Skin to skin contact initiated. Family bonding well. Both mother and baby were left in stable condition.
[2019-11-22] MEDS: IBUPROFEN 800 MG TABLET PO SCH ×2 (12:57→20:45)
[2019-11-22] MEDS: ACETAMINOPHEN 500 MG TABLET PO SCH ×2 (12:57→20:46)
[2019-11-22] MEDS: DOCUSATE SODIUM 100 MG CAPSULE PO SCH ×2 (20:46→20:51)
[2019-11-23] MEDS: IBUPROFEN 800 MG TABLET PO SCH ×2 (06:29→12:15)
[2019-11-23] MEDS: ACETAMINOPHEN 500 MG TABLET PO SCH ×2 (06:30→15:25)
--- NOTE | 2019-11-23 07:41 | PROVIDER PROGRESS NOTE ---
Subjective - Subjective Subjective: S: Bonding well with baby. without difficulty. Pain well controlled with oral medications. Bleeding decreased is light. Feeling well and desires to be discharged home today. O: BP 120.81, RR 18, T36.7, HR81 Heart RRR w/o M/G/R, lungs CTAB, abdomen soft and nontender with fundus firm at U-2, bilateral LE's. A: 29yo -->P2 PPD#1 s/p TSVD of viable female P: Reviewed pp self care and warning s/sx Advised continuation of PNV while Advised continuation of ibuprofen and tylenol PRN pain. F/u in 3wks for routine pp visit or sooner PRN. Objective - Vital Signs/Intake & Output Vital Signs: Vital Signs x48h Temp Pulse Resp BP Pulse Ox 11/23/19 04:32 36.7 C 81 18 120/81 H 100 11/23/19 02:58 136/88 H 11/23/19 02:55 128/86 H 11/23/19 02:44 80 16 128/94 H 100 11/22/19 23:59 36.7 C 68 18 140/95 H 100 Intake & Output: Intake & Output 11/20/19 11/21/19 11/22/19 11/23/19 23:59 23:59 23:59 23:59 Intake Total 1500.000 Output Total 150 Balance 1350.000 - Lab Results Fish Bones: 11/21/19 20:30 Other Labs: Lab Results x24hrs 11/22/19 Range/Units 19:10 Blood Type O NEGATIVE Weak D (Du) WEAK-D NEGATIVE Maternal Bleed NEGATIVE (NEGATIVE)
--- NOTE | 2019-11-23 07:43 | Discharge Plan ---
Discharge Plan Problem Reviewed?: Yes Disposition: Home, Self Care Condition: Good Diet: Regular Activity Restrictions: No Restrictions Shower Restrictions: No Driving Restrictions: No Weight Bearing: Full Weight No Smoking: If you smoke, Please STOP! Call for help. Follow-up with: Ana Ortega CNM, ARNP [Provider Admit Priv/Credential] -
--- NOTE | 2019-11-23 08:05 | DISCHARGE SUMMARY ---
Physician: PATRICIA Rivas DATE OF ADMISSION: 11/21/2019 DATE OF DISCHARGE: 11/23/2019 DIAGNOSES ON ADMISSION 1. A 29-year-old G2, P1-0-0-1 at 38.5 weeks gestation. 2. Early labor. 3. Group B Streptococcus negative. DIAGNOSES ON DISCHARGE 1. A 29-year-old G2, P2-0-0-2 status post spontaneous vaginal delivery on 11/22/2019. 2. . 3. Normal recovery. HISTORY OF PRESENT ILLNESS: She is a patient of [facility] who presented on with complaints of grossly ruptured membranes. Upon arrival, her cervix was noted to be 3 cm dil ated, 50% effaced, -1 station, vertex position. heart rate pattern demonstrated category 1, ba seline throughout. The patient augmented with Pitocin for a max infusion rate of 11 milliunits per m L She progressed to spontaneously deliver a viable female infant on 11/22/2019 at 11:41. Apgars were 9 and 10 at 1 and 5 minutes, respectively. EBL was 150 mL. Perineum was intact. She has been doing well in her course. She is ambulating and tolerating a regular diet. She is urinating without difficulty and her lochia is normal. Her pain is well controlled with oral medications. She will be discharged home today on day #1 with instructions to continue he r vitamin while , and to continue ibuprofen and Tylenol [id number] as nee ded for pain management. She has been given precautions to call if she has any worsening fevers, chi lls, abdominal pain, increased bleeding or foul-smelling vaginal lochia. TD: 11/23/2019 07:48
[2019-11-23] MEDS ORDERED: RHO(D) IMMUNE GLOBULIN 300 MCG SYRINGE IM ONE ×2 (09:00→09:38)
[2019-11-23] MEDS: DOCUSATE SODIUM 100 MG CAPSULE PO SCH (09:50)
[2019-11-23 15:37] VITALS: BP 132/90
--- NOTE | 2019-11-23 16:58 | Labor Flowsheet ---
Labor Flowsheet Datetime Report Generated by CPN: 11/23/2019 16:57 Datetime: 11/23/2019 15:34 VITAL SIGNS NBP Sys/Jennifer/Mean (mmHg): 132 : 90 : 101 Pulse: 68 LaborFlag: Labor Datetime: 11/23/2019 02:45 SpO2 (%): 100 Datetime: 11/22/2019 13:11 PAIN Pain Scale: 1 Pain Presence: Intermittent Pain Type: Cramping Pain Location: Abdomen Datetime: 11/22/2019 11:41 STAGE 2 Stage 2 Comments: of a viable female infant over an intact perineum. Datetime: 11/22/2019 11:36 UTERINE ACTIVITY Monitor Mode: External Frequency (min): 1.2-2 Quality: Strong Duration (sec): 60-90 Resting Tone (Palpate): Relaxed FHR Baseline Rate : 140 Comments: Trying to get back into bed, FHR not tracing well VAGINAL EXAM Dilatation (cm): 10.0 Station: 4 Vaginal Exam Comments: Trying to get back into bed, babies head visable on the perineum. Datetime: 11/22/2019 11:35 Patient Position/Activity: Standing; Walking Datetime: 11/22/2019 11:32 Effacement (%): 90 Exam by: T Ridge Patient Care Comments: Sitting on the toilet. Wants to have a bowel movement. SVE on the toilet and 7 cm. Encouraged Ho to get up and back to bed if possible. 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 Will be over around 12 to assess. Call if needed sooner Datetime: 11/22/2019 11:15 Monitor Interventions for UA: [place] Adjusted Datetime: 11/22/2019 11:00 Contraction Comments: Switching out complete tele unit as toco not capturing contractions. Datetime: 11/22/2019 10:47 Respirations: 16 Datetime: 11/22/2019 10:20 MEDICATIONS Pitocin (milliunits): Increased to @ 9 Datetime: 11/22/2019 08:34 Temperature (C): 36.9 Temperature Route: Oral Datetime: 11/22/2019 08:10 PATIENT CARE IV/Blood Work: IV Infusing per Order Datetime: 11/22/2019 03:05 Pain Coping: Sleeping Datetime: 11/22/2019 00:18 Vaginal Bleeding: None Cervix, Consistency: Soft Cervix, Position: Anterior Datetime: 11/22/2019 00:16 Notification Reason: Status Update; Status; Labor Status; Uterine Activity Datetime: 11/21/2019 20:53 Pain Relief Measures: Comfort Measures Comfort Measures: Breathing/Relaxation
== END 2019-11-23 16:56 | disposition home or self-care (01) | DRG 807 ==
LOC: WFO 19:22 → FBP 19:26 → WFO 19:53 → FBP 19:54
PROVIDERS: ADMIT Nurse Practitioner Obstetrics & Gynecology; ATTEND Nurse Practitioner Obstetrics & Gynecology
PROC: 10E0XZZ Delivery of Products of Conception, External Approach (ICD-10-PCS; principal; 2019-11-22)
DX: O42.02 Full-term premature rupture of membranes, onset of labor within 24 hours of rupture (principal); Z37.0 Single live birth; O69.81X0 Labor and delivery complicated by cord around neck, without compression, not applicable or unspecified; O32.6XX0 Maternal care for compound presentation, not applicable or unspecified; O75.89 Other specified complications of labor and delivery; Z67.41 Type O blood, Rh negative; Z3A.38 38 weeks gestation of pregnancy
CPT/HCPCS: 83033; 85025; 86900; 86901; A9270; J7120; 99213